=== PATIENT | female | born 1975 | race Asian ===

== ENCOUNTER 2016-08-12 18:25 | Emergency (ER) | payer OTHER ==
[2016-08-12 18:30] VITALS: BP 141/86; PULSE 62; RESP 18; O2SAT 99
--- NOTE | 2016-08-12 18:48 | ED.REPORT ---
HPI-Extremity Problem Upper Date of Service August 12, 2016 ED Provider: Dr. Quevedo Pt is an otherwise healthy 41 year old female who presents to the ED with a right middle finger laceration (1 cm) onset 17:30 after cutting it on a clean tin can. She denies numbness or weakness of the finger. Pt had her tetanus shot in 2012. Pt denies having any medical problems and does not take any medication. 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 Nursing Notes Stated Complaint: RIGHT MIDDLE FINGER LACERATION Chief Complaint: Laceration Nursing Notes Reviewed: Yes Allergies: Coded Allergies: No Known Allergies (Unverified Allergy, Unknown, 01/12/15) General Time Seen by MD: 18:48 Chief Complaint Finger injury right 3 (1 cm laceration) Hx Obtained From: Patient Arrived By: Walk-in Onset Occurred: Just prior to arrival Symptom Duration: Since onset Caused by: Accidental (Tin can) Context: Occurred at: Home injury Location: : Finger right 3 Quality: Painful Severity: Current: Moderate Severity: Maximum: Moderate Immunizations: Tetanus up to date (Last in 2012) Similar Sx Previous: No Past Medical History Past Medical History Denies Past Surgical History None reported Smoking History Never Smoker Social History lives in [facility] with 2 cats and Alcohol Use: Denies alcohol use Drug Use: Denies drug use Other Social History: 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 Hematologic: Reports Bleeding Physical Exam Initial Vital Signs Vital Signs (First) Date Time Temp Pulse Resp B/P Pulse Ox O2 Delivery O2 Flow Rate FiO2 08/12/16 18:30 37.0 62 18 141/86 99 Room Air Initial VS: Reviewed, Vital signs normal Head / Eyes: Atraumatic, Normocephalic, PERRL ENT: Mucous membranes moist, Conjunctiva normal, No scleral icterus Neck: Supple, Full range of motion Respiratory: Breath sounds normal, Clear to auscultation, No respiratory distress Cardiovascular: Regular rate & rhythm, Heart sounds normal, Intact distal pulses Abdomen / GI: Soft, Non-tender, No guarding, No rebound, No distention Lower Extremities: Vascular intact, Neuro intact Skin: Warm, Dry, No cyanosis Neurologic: Alert, Oriented, Nonfocal Psychiatric: Mood/affect normal, Behavior normal, Normal thought content General/Constitutional: Awake, Alert, No acute distress, Well appearing, Cooperative, Not toxic appearing Wrist / Hand: Full range of motion, No swelling, No erythema, No snuffbox tenderness, No deformity, Neurologic intact, Vascular intact, No ligamentous injury, Tendon function NL, No compartment syndrome, No circumferential injury, No clubbing/cyanosis, No edema 18 mm flap laceration of the distal tip of right finger 3 Procedures Laceration Management Time: 19:08 Procedure Performed by: ED physician Consent / Setup / Site Prep: Consent from patient, Time-out performed, Hand hygiene observed, Stand sterile technique Location of Wound: Distal tip of the right middle finger Wound Length: 2 cm (18 mm) Local Anesthesia: Lidocaine 1% Digital Block: Yes Digit Involved: Middle finger right Wound Preparation: Hibiclens - Chlorhexidine Debridement: None Irrigation: Copious Undermining / Margins: Flaps aligned Repair Skin: ___ O (5), Nylon # Sutures - Skin: 6 Closure Layers: 1 Suture Technique: Simple Post-Procedure / Complications: Antibiotic oint applied, No complications, Condition improved, Tolerated procedure well, Patient stable Re-Eval/Medical Decision Source of Hx: Old records Re-Evaluation/Progress : Time of Eval: 19:30 Re-Evaluation/Progress Note: Pt rechecked. Informed pt of plan for treatment. Pt understands and agrees with plan for treatment. F/U instructions and RTER warnings given. All questions addressed. Counseled Regarding: Diagnosis, Need for follow-up, When/why to return to ED Discharge & Departure Impression: Primary Impression: Laceration of right middle finger Disposition: Home Discharge Condition All VS Reviewed: Yes Condition: Stable Patient Instructions: Finger Laceration (ED) Additional Instructions: You were seen today for a right middle finger laceration. It was repaired with 6 sutures. These should be removed in 10-14 days by a medical professional. Keep it dry for 24 hours. Return to the Emergency Department if you develop signs of infection; redness, swelling, pain, discharge of pus, or other concerning symptoms. Follow up with your primary care provider as regularly scheduled. Referrals: Karla Almanza MD (PCP) Scribe Attestation Portions of this note were transcribed by Mukund Freire and Bing Grimes. I, Dr. Quevedo personally performed the history, physical exam and medical decision -making; I reviewed and confirmed the accuracy of the information in the transcribed note. Signed by: Mukund Freire and Bing Grimes, Dorian, 08/12/16 and 1925 copies to: Karla Almanza MD, Gary R DO August 12, 2016 18:48 Bing Rothman August 12, 2016 18:55 MUKUND FREIRE August 12, 2016 19:34
[2016-08-12 19:52] VITALS: BP 112/60; PULSE 62; RESP 20; O2SAT 98
== END 2016-08-12 19:53 | disposition home or self-care (01) ==
LOC: SED 18:25
DX: S61.212A Laceration without foreign body of right middle finger without damage to nail, initial encounter (principal); W26.8XXA Contact with other sharp object(s), not elsewhere classified, initial encounter; Y92.009 Unspecified place in unspecified non-institutional (private) residence as the place of occurrence of the external cause; Y93.89 Activity, other specified; Y99.8 Other external cause status